=== PATIENT | female | born 2000 | race Caucasian/White ===

== ENCOUNTER → 2018-03-01 | Outpatient (CLI) | payer BC ==
[2018-03-01 14:26] LABS: BASO % 0.4 % (0.0-1.0); EOS % 0.6 % (0.0-3.0); HEMATOCRIT 44.2 % (36.0-47.0); HEMOGLOBIN 14.6 g/dl (12.0-15.5); LYMPH % 36.2 % (24.0-44.0); MEAN CORPUSCULAR HEMOGLOBIN 29.4 pg (27.0-33.0); MEAN CORPUSCULAR VOLUME 89.1 fl (80.0-96.0); MONO # 0.3 10^3/uL (0.0-0.8); MONO % 6.1 % (0.0-5.0); NEUTROPHILS # 3.1 10^3/uL (1.8-7.7); NEUTROPHILS % 56.7 % (36.0-66.0); PLATELET COUNT, AUTOMATED 168 10^3/uL (150-450); RED BLOOD COUNT 4.96 10^6/uL (4.00-5.40); RED CELL DISTRIBUTION WIDTH 12.2 % (11.5-14.5); WHITE BLOOD COUNT 5.4 10^3/uL (4.0-10.0)
[2018-03-01 14:42] LABS: ALBUMIN 4.6 GM/DL (3.2-5.2); ALBUMIN/GLOBULIN RATIO 1.39 (1.00-1.93); ALKALINE PHOSPHATASE 81 U/L (45-117); ALT/SGPT 17 U/L (12-78); ANION GAP 8 MEQ/L (8-16); AST/SGOT 13 U/L (7-37); BILIRUBIN,TOTAL 0.6 MG/DL (0.2-1.0); BLOOD UREA NITROGEN 13 MG/DL (7-18); C REACTIVE PROTEIN QUANTITATIV < 0.30 MG/DL (0.00-0.30); CALCIUM LEVEL 9.5 MG/DL (8.5-10.1); CARBON DIOXIDE LEVEL 28 MEQ/L (21-32); CHLORIDE LEVEL 107 MEQ/L (98-107); CREATININE FOR GFR 0.78 MG/DL (0.55-1.30); FREE T4 1.04 NG/DL (0.78-1.33); GLUCOSE, FASTING 79 MG/DL (70-100); IRON (FE) 115 UG/DL (50-170); PERCENT SATURATION 36.2 % (13.2-45.0); POTASSIUM SERUM 4.5 MEQ/L (3.5-5.1); SODIUM LEVEL 143 MEQ/L (136-145); TOTAL IRON BINDING CAPACITY 318 UG/DL (250-450); TOTAL PROTEIN 7.9 GM/DL (6.4-8.2)
[2018-03-01 15:04] LABS: TOTAL 25(OH) VITAMIN D 83.9 NG/ML (30.0-100.0)
== END ==
LOC: M WUC 11:17
DX: R63.4 Abnormal weight loss (principal)
CPT/HCPCS: 83550

== ENCOUNTER → 2019-09-20 | Outpatient (REF) | payer BC ==
[2019-09-20 13:31] LABS: CHLAMYDIA DNA AMPLIFICATION NEGATIVE (NEGATIVE); GC DNA AMPLIFICATION NEGATIVE (NEGATIVE)
== END ==
LOC: M SFHCWAGY 11:29
PROVIDERS: ATTEND Nurse Practitioner Women's Health
DX: Z12.4 Encounter for screening for malignant neoplasm of cervix (principal); Z11.3 Encounter for screening for infections with a predominantly sexual mode of transmission
CPT/HCPCS: 87661; G0123

== ENCOUNTER 2020-02-07 16:09 | Emergency (ER) | payer OTHER, BC ==
[~2020-02-07] VITALS: Ht 157.5 cm; Wt 54.5 kg
[2020-02-07] MEDS ORDERED: IUD (16:15)
[2020-02-07 18:54] VITALS: BP 131/84
== END 2020-02-07 18:48 | disposition home or self-care (01) ==
LOC: M ED 16:09
DX: S00.83XA Contusion of other part of head, initial encounter (principal); W20.8XXA Other cause of strike by thrown, projected or falling object, initial encounter; Y99.8 Other external cause status; Y92.89 Other specified places as the place of occurrence of the external cause; Y93.89 Activity, other specified

== ENCOUNTER → 2023-12-29 | Outpatient (REF) | payer OTHER, BC ==
[~2023-12-29] MED LIST: IUD
== END ==
LOC: M SFHCWAGY 15:09
PROVIDERS: ATTEND Nurse Practitioner Family
DX: Z12.4 Encounter for screening for malignant neoplasm of cervix (principal)

== ENCOUNTER → 2024-04-20 | Outpatient (CLI) | payer OTHER ==
[2024-04-20 14:04] LABS: HEMATOCRIT 38.9 % (36.0-47.0); HEMOGLOBIN 12.4 g/dl (12.0-15.5); MEAN CORPUSCULAR HEMOGLOBIN 27.1 pg (27.0-33.0); MEAN CORPUSCULAR HGB CONC 31.9 g/dl (32.0-36.5); MEAN CORPUSCULAR VOLUME 85.1 fl (80.0-96.0); PLATELET COUNT, AUTOMATED 228 10^3/uL (150-450); RED BLOOD COUNT 4.57 10^6/uL (4.00-5.40); WHITE BLOOD COUNT 9.3 10^3/uL (4.0-10.0)
[2024-04-20 15:17] LABS: GC DNA AMPLIFICATION NEGATIVE (NEGATIVE)
[2024-04-21 18:26] LABS: HIV 1&2 SCREEN NEGATIVE (NEGATIVE)
[2024-04-21 18:32] LABS: HEPATITIS C VIRUS ABY INDEX < 0.02 INDEX (<0.8)
== END ==
LOC: M PLALAB 09:30
PROVIDERS: ATTEND Specialist
DX: Z34.01 Encounter for supervision of normal first pregnancy, first trimester (principal)

== ENCOUNTER → 2024-04-20 | Outpatient (CLI) | payer OTHER ==
[2024-04-20 14:22] LABS: TOTAL PROTEIN,RANDOM URINE 10.2 MG/DL (0.0-14.0)
[2024-04-20 14:26] LABS: CREATININE,RANDOM URINE 126.1 MG/DL
== END ==
LOC: M PLALAB 09:23
PROVIDERS: ATTEND Advanced Practice Midwife
DX: O10.012 Pre-existing essential hypertension complicating pregnancy, second trimester (principal); Z3A.00 Weeks of gestation of pregnancy not specified

== ENCOUNTER → 2024-05-18 | Outpatient (CLI) | payer OTHER ==
[2024-05-18 13:55] LABS: LDH LACTATE DEHYDROGENASE 135 U/L (120-246)
[2024-05-18 13:56] LABS: ALT/SGPT 25 U/L (7.0-40); AST/SGOT 15 U/L (<34); BILIRUBIN,TOTAL 0.3 MG/DL (0.3-1.2); CREATININE FOR GFR 0.62 MG/DL (0.55-1.30); GLOMERULAR FILTRATION RATE > 60.0 (>60)
== END ==
LOC: M PLALAB 09:15
PROVIDERS: ATTEND Advanced Practice Midwife
DX: O10.012 Pre-existing essential hypertension complicating pregnancy, second trimester (principal)

== ENCOUNTER → 2024-06-14 | Outpatient (CLI) | payer OTHER | LOC: M RAD 13:50 | PROVIDERS: ATTEND Advanced Practice Midwife | DX: O10.012 Pre-existing essential hypertension complicating pregnancy, second trimester (principal) ==

== ENCOUNTER → 2024-07-10 | Outpatient (CLI) | payer OTHER ==
[2024-07-10 13:11] LABS: HEMATOCRIT 36.9 % (36.0-47.0); HEMOGLOBIN 11.4 g/dl (12.0-15.5); MEAN CORPUSCULAR HGB CONC 30.9 g/dl (32.0-36.5); MEAN CORPUSCULAR VOLUME 87.4 fl (80.0-96.0); PLATELET COUNT, AUTOMATED 215 10^3/uL (150-450); RED BLOOD COUNT 4.22 10^6/uL (4.00-5.40); WHITE BLOOD COUNT 9.5 10^3/uL (4.0-10.0)
[2024-07-10 13:39] LABS: GLUCOSE CHALLENGE TEST 1 HOUR 107 MG/DL (LESS THAN 140)
[2024-07-10 14:08] LABS: HIV 1&2 SCREEN NEGATIVE (NEGATIVE)
[2024-07-10 14:16] LABS: HEPATITIS C VIRUS ABY INDEX 0.18 INDEX (<0.8)
[2024-07-10 15:45] LABS: GC DNA AMPLIFICATION NEGATIVE (NEGATIVE)
== END ==
LOC: M PLALAB 08:46
PROVIDERS: ATTEND Specialist
DX: Z36.89 Encounter for other specified antenatal screening (principal); Z3A.22 22 weeks gestation of pregnancy

== ENCOUNTER → 2024-08-03 | Outpatient (CLI) | payer OTHER | LOC: M WHC 14:45 | PROVIDERS: ATTEND Nurse Practitioner Family | DX: O10.012 Pre-existing essential hypertension complicating pregnancy, second trimester (principal); Z3A.28 28 weeks gestation of pregnancy ==

== ENCOUNTER → 2024-08-31 | Outpatient (CLI) | payer OTHER | LOC: M WHC 14:19 | PROVIDERS: ATTEND Nurse Practitioner Family | DX: O10.012 Pre-existing essential hypertension complicating pregnancy, second trimester (principal); Z3A.32 32 weeks gestation of pregnancy ==

== ENCOUNTER → 2024-08-31 | Outpatient (CLI) | payer OTHER ==
[2024-08-31 18:47] LABS: MEAN CORPUSCULAR HEMOGLOBIN 26.9 pg (27.0-33.0); MEAN CORPUSCULAR HGB CONC 31.6 g/dl (32.0-36.5); MEAN CORPUSCULAR VOLUME 85.2 fl (80.0-96.0); PLATELET COUNT, AUTOMATED 227 10^3/uL (150-450); RED BLOOD COUNT 4.46 10^6/uL (4.00-5.40); WHITE BLOOD COUNT 12.7 10^3/uL (4.0-10.0)
[2024-08-31 18:53] LABS: TOTAL PROTEIN,RANDOM URINE 22.7 MG/DL (0.0-14.0)
[2024-08-31 18:57] LABS: CREATININE,RANDOM URINE 116.6 MG/DL
[2024-08-31 18:59] LABS: URIC ACID 4.4 MG/DL (3.1-7.8)
[2024-08-31 19:01] LABS: LDH LACTATE DEHYDROGENASE 185 U/L (120-246)
[2024-08-31 19:02] LABS: ALT/SGPT 21 U/L (7.0-40); AST/SGOT 18 U/L (<34); BILIRUBIN,TOTAL 0.3 MG/DL (0.3-1.2); CREATININE FOR GFR 0.69 MG/DL (0.55-1.30); GLOMERULAR FILTRATION RATE > 60.0 (>60)
== END ==
LOC: M PLALAB 14:20
PROVIDERS: ATTEND Obstetrics & Gynecology
DX: O10.019 Pre-existing essential hypertension complicating pregnancy, unspecified trimester (principal); Z3A.00 Weeks of gestation of pregnancy not specified

== ENCOUNTER → 2024-09-25 | Outpatient (REF) | payer BC, OTHER | LOC: M SFHCWAGY 17:05 | PROVIDERS: ATTEND Nurse Practitioner Family | DX: Z36.89 Encounter for other specified antenatal screening (principal); Z3A.35 35 weeks gestation of pregnancy ==

== ENCOUNTER → 2024-09-28 | Outpatient (CLI) | payer OTHER | LOC: M WHC 15:25 | PROVIDERS: ATTEND Nurse Practitioner Family | DX: O10.012 Pre-existing essential hypertension complicating pregnancy, second trimester (principal) ==

== ENCOUNTER 2024-10-02 13:56 | Outpatient (CLI) | payer OTHER, BC ==
[~2024-10-02] VITALS: Ht 157.5 cm; Wt 94.8 kg
[2024-10-02] MEDS ORDERED: LABE300T28 PO (14:07)
[2024-10-02] MEDS ORDERED: ASPI-226 PO (14:07)
[2024-10-02] MEDS ORDERED: PRENTAB9 PO (14:07)
[2024-10-02] MEDS ORDERED: HOME MED LIST COMPLETE! XX SCH (14:10)
[2024-10-02 14:15] VITALS: BP 134/88
[2024-10-02 14:47] VITALS: BP 133/85
[2024-10-04] MEDS ORDERED: ZYRTTAB8 PO (08:09)
[2024-10-04] MEDS ORDERED: MAGN400C2 PO (08:10)
== END 2024-10-02 17:01 | disposition home or self-care (01) ==
LOC: M LDO 13:56
PROVIDERS: ATTEND Obstetrics & Gynecology
DX: O47.03 False labor before 37 completed weeks of gestation, third trimester (principal); O10.013 Pre-existing essential hypertension complicating pregnancy, third trimester; Z3A.36 36 weeks gestation of pregnancy
CPT/HCPCS: 59025; G0463

== ENCOUNTER → 2024-12-25 | Outpatient (CLI) | payer OTHER ==
[~2024-12-25] MED LIST changes: +ASPI-226 PO; +COLA100C5 PO; +IBUP80TA PO; +LABE300T28 PO; +MAGN400C2 PO; +PRENTAB9 PO; +ZYRTTAB8 PO
[2024-12-25 13:44] LABS: BASO % 0.4 % (0.0-1.0); EOS # 0.1 10^3/uL (0.0-0.5); EOS % 2.4 % (0.0-3.0); HEMATOCRIT 41.1 % (36.0-47.0); HEMOGLOBIN 12.8 g/dl (12.0-15.5); LYMPH # 1.5 10^3/uL (1.5-5.0); MEAN CORPUSCULAR HEMOGLOBIN 25.4 pg (27.0-33.0); MEAN CORPUSCULAR HGB CONC 31.1 g/dl (32.0-36.5); MEAN CORPUSCULAR VOLUME 81.7 fl (80.0-96.0); MONO # 0.5 10^3/uL (0.0-0.8); NEUTROPHILS # 3.3 10^3/uL (1.5-8.5); PLATELET COUNT, AUTOMATED 244 10^3/uL (150-450); RED BLOOD COUNT 5.03 10^6/uL (4.00-5.40); WHITE BLOOD COUNT 5.4 10^3/uL (4.0-10.0)
[2024-12-25 14:20] LABS: ALBUMIN 4.1 G/DL (3.2-5.2); ALKALINE PHOSPHATASE 162 U/L (35-104); ALT/SGPT 23 U/L (7.0-40); AST/SGOT 15 U/L (<34); BILIRUBIN,TOTAL 0.3 MG/DL (0.3-1.2); BLOOD UREA NITROGEN 18 MG/DL (9-23); CALCIUM LEVEL 9.5 MG/DL (8.5-10.1); CARBON DIOXIDE LEVEL 29 MMOL/L (20-31); CHLORIDE LEVEL 105 MMOL/L (98-107); GLOMERULAR FILTRATION RATE > 90.0 (>60); GLUCOSE, FASTING 61 MG/DL (60-100); POTASSIUM SERUM 4.8 MMOL/L (3.5-5.1); SODIUM LEVEL 143 MMOL/L (136-145); TOTAL PROTEIN 7.3 G/DL (5.7-8.2)
== END ==
LOC: M PLALAB 11:59
PROVIDERS: ATTEND Physician Assistant
DX: I10 Essential (primary) hypertension (principal)

== ENCOUNTER → 2025-03-19 | Outpatient (REF) | payer OTHER ==
[2025-03-21 14:22] LABS: HPV APTIMA Not Detected (Not Detected)
== END ==
LOC: M SFHCWAGY 13:15
PROVIDERS: ATTEND Obstetrics & Gynecology
DX: Z12.4 Encounter for screening for malignant neoplasm of cervix (principal)
CPT/HCPCS: 87624; G0123

== ENCOUNTER → 2025-03-27 | Outpatient (CLI) | payer OTHER ==
[2025-03-27 15:26] LABS: ALT/SGPT 17 U/L (7.0-40); AST/SGOT 19 U/L (<34); CALCIUM LEVEL 9.4 MG/DL (8.5-10.1); CARBON DIOXIDE LEVEL 29 MMOL/L (20-31); CHLORIDE LEVEL 101 MMOL/L (98-107); CREATININE FOR GFR 0.64 MG/DL (0.55-1.30); GLOMERULAR FILTRATION RATE > 90.0 (>60); POTASSIUM SERUM 4.6 MMOL/L (3.5-5.1); SODIUM LEVEL 139 MMOL/L (136-145)
== END ==
LOC: M PLALAB 13:22
PROVIDERS: ATTEND Physician Assistant
DX: Z00.00 Encounter for general adult medical examination without abnormal findings (principal); F41.3 Other mixed anxiety disorders